=== PATIENT | male | born 1975 | race African-American/Black ===

== ENCOUNTER 2017-05-27 12:20 | Observation (INO) | payer SELFPAY ==
--- NOTE | 2017-05-27 12:58 | DR.GENAD ---
HPI - PCP Primary Care Physician: ROSALIE - HPI Comment HPI Comment: HISTORY BELOW. - Complaint/Symptoms Chief Complaint Doctors Comments: SWELLING LOWER EXTREMITIES TIMES 3 DAYS. TODAY , PATIENT IN ATAXIC, HAVING DYSARTHRIA AND NOT ACTING RIGHT PER HIS RELATIVES. HE IS COMPLAINING OF HEADACHE AND NAUSEA. NO FEVER. Chief Complaint:: PT C/O SWELLING TO LOWER EXT AND HEADACHE. PT'S FAMILY STATES SOMETHING IS WRONG WITH HIM HIS SPEACH IS SLOW SLURRING AND MUMBLING AND THIS IS NOT LIKE HIM. PT IS VERY UNSTEADY ON HIS FEET. - Nurses notes reviewed Nurses Notes Review: Yes - Source History Provided: Patient - Mode of Arrival Mode of Arrival: Ambulatory - Timing Onset of Chief Complaint: 05/24/17 Came on: Suddenly - Duration Duration: Constant Duration: Hours - Severity Severity: Moderate PMH - PMH Past Medical History: Yes Past Medical History: Migraines, Hypertension Past Surgical History: No Surgical History: No History - Family History History of Family Medical Conditions: Yes Family Medical History: Hypertension - Social History Does patient currently use any type of tobacco product: Yes Have you used tobacco products in the last 12 months: Yes Type of Tobacco Use: Cigarettes Does any household member use tobacco: Yes Alcohol Use: None Do you use any recreational Drugs:: No Lives With: Family Lives Where: Home - infectious screening In the last 2 months have you had wt loss of >10#?: NO Have you had fever, night sweats or hemotysis?: No Have you traveled outside the country in the last 6 months?: No Isolation: Standard ROS - Review of Systems Constitutional: No Symptoms Reported. negative: Chills, Fever Eyes: No Symptoms Reported. negative: Eye Pain, Discharge ENTM: No Symptoms Reported, Nose Pain. negative: Ear Pain, Nose Discharge, Nose Congestion, Throat Pain Respiratoy: No Symptoms Reported. negative: Productive Cough, Non-Productive Cough, Short of Breath, Wheezing, Hemoptysis Cardiovascular: Edema. negative: Chest Pain Gastrointestinal/Abdominal: Nausea. negative: Abdominal Pain, Diarrhea, Vomiting Genitourinary: No Symptoms Reported. negative: Dysuria, Frequency, Hematuria Neurological: Dizziness, Other (ATAXIA) Musculoskeletal: Leg (LOWER EXTREMITY EDEMA, RT ANKLE WORSE.) Integumentary: No Symptoms Reported Hematologic/Lymphatic: No Symptoms Reported Endocrine: No Symptoms Reported All Other Systems: Reviewed and Negative PE - Vital Signs Vitals: Temperature 98.4 F Pulse Rate [Left Radial] 74 Pulse Rate 91 Respiratory Rate 16 Blood Pressure [Right Arm] 114/73 Blood Pressure 107/81 O2 Sat by Pulse Oximetry 100 - General Limitations: Altered Mental Status General Appearance: Alert - Head Head Exam: Normal Inspection - Eyes Eye exam: PERRL, EOMI. negative: Scleral Icterus, Conjunctival Injection - ENT ENT Exam: Normal External Ear Exam External Ear Exam: Normal External Inspection TM/Canal Exam: Bilateral Normal Nose Exam: Normal Nose Exam Mouth Exam: Normal Inspection Throat Exam: Normal Inspection - Neck Neck Exam: Trachea Midline - Chest Chest Inspection: Symmetric Chest Wall Rise - Respiratory Respiratory Exam: Normal Lung Sounds Bilat Respiratory Exam: Bilateral Clear to Auscultation - Cardiovascular Cardiovascular Exam: Regular Rate, Normal Rhythm, Normal Heart Sounds - Abdominal Exam Abdominal Exam: Normal Bowel Sounds, Soft. negative: Tenderness - Extremities Extremities Exam: Normal Inspection - Back Back Exam: Normal Inspection - Neurologic Neurological Exam: Alert, Reflexes Normal, Other (ORIENTED TO PERSON AND PLACE.) . negative: CN II-XII Intact (DYSARTHRIA), Normal Gait (ATAXIA), Motor Sensory Deficit - Psychiatric Psychiatric Exam: Flat Affect - Skin Skin Exam: Normal Color MDM - Additional Information Additional Information Obtained From: Family - Differential Diagnosis Differential Diagnosis: AMS, ATAXIA, HAEDACHE, CVA, VERTIGO Course - Treatment Treatment: SEE ORDERS. - Consultation Consultation Comments: DISCUSS CASE WITH DR. POWER. HE WILL ADMIT PATIENT. - Education/Counseling Education/Counseling: Patient, Family, Education Educated On: Treatment, Diagnosis ROR - Labs Reviewed Laboratory Results Reviewed?: Yes Result Diagrams: 05/29/17 07:23 05/29/17 07:23 Laboratory: WBC 8.2 X10^3/uL (3.6-10.0) 05/29/17 07:23 RBC 4.26 X10^6/uL (4.7-6.0) L 05/29/17 07:23 Hgb 14.2 g/dL (13.5-18.0) 05/29/17 07:23 Hct 40.3 % (42.0-54.0) L 05/29/17 07:23 MCV 94.7 fL (80.0-100.0) 05/29/17 07:23 MCH 33.3 pg (27.0-34.0) 05/29/17 07:23 MCHC 35.2 g/dL (33.0-35.0) H 05/29/17 07:23 RDW 12.7 % (11.6-16.5) 05/29/17 07:23 Plt Count 204 X10^3/uL (150.0-450.0) 05/29/17 07:23 MPV 8.4 fL (7.4-11.0) 05/29/17 07: Neut % 66.8 % (42.0-75.0) 05/29/17 07: Lymph % 23.8 % (21.0-51.0) 05/29/17 07: [place] % 6.8 % (0.0-13.0) 05/29/17 07: Eos % 1.7 % (0.9-2.9) 05/29/17 07: Baso % 0.9 % (0.2-1.0) 05/29/17 07:23 Neut # 5.5 x10^3/uL (2.2-4.8) H 05/29/17 07:23 Lymph # 2.0 X10^3/uL (1.3-2.9) 05/29/17 07:23 [place] # 0.6 x10^3/uL (0.3-0.8) 05/29/17 07:23 Eos # 0.1 x10^3/uL (0.0-0.2) 05/29/17 07:23 Baso # 0.1 X10^3/uL (0.0-0.1) 05/29/17 07:23 Absolute Nucleated RBC 0.1 /100WBC 05/29/17 07:23 Sodium 140 mmol/L (136-145) 05/29/17 07:23 Corrected Sodium TNP 05/29/17 07:23 Potassium 3.7 mmol/L (3.5-5.1) 05/29/17 07:23 Chloride 105 mmol/L (98-107) 05/29/17 07:23 Carbon Dioxide 28.6 mmol/L (21-32) 05/29/17 07:23 BUN 5 mg/dL (7-18) L 05/29/17 07:23 Creatinine 0.82 mg/dL (0.70-1.30) 05/29/17 07:23 Est GFR (MDRD) Af Amer > 60 (>60) 05/29/17 07:23 Est GFR (MDRD) Non-Af > 60 (>60) 05/29/17 07:23 Glucose 110 mg/dL (65-99) H 05/29/17 07:23 Calcium 8.2 mg/dL (8.5-10.1) L 05/29/17 07:23 Corrected Calcium 8.8 mg/dL (8.5-10.1) 05/29/17 07:23 Magnesium 2.1 mg/dL (1.7-2.9) 05/28/17 05:29 Total Bilirubin 0.20 mg/dL (0.2-1.0) 05/29/17 07:23 AST 21 Units/L (15-37) 05/29/17 07:23 ALT 43 Units/L (12-78) 05/29/17 07:23 Alkaline Phosphatase 60 Units/L (46-116) 05/29/17 07:23 Creatine Kinase 107 Units/L (39-308) 05/28/17 01:19 CK-MB (CK-2) < 1.0 ng/mL (0-4.0) 05/28/17 01:19 CK/CKMB % Calc 0.9 % (<4) 05/28/17 01:19 Troponin I < 0.02 ng/mL (0-1.5) 05/28/17 01:19 Total Protein 7.2 g/dL (6.4-8.2) 05/29/17 07:23 Albumin 3.3 g/dL (3.4-5.0) L 05/29/17 07:23 Globulin 3.9 g/dL (2.5-4.5) 05/29/17 07:23 Albumin/Globulin Ratio 0.8 Ratio (1.1-2.1) L 05/29/17 07:23 Triglycerides 178 mg/dL (0-150) H 05/28/17 05:29 Cholesterol 206 mg/dL (0-200) H 05/28/17 05:29 LDL Cholesterol, Calc 143 mg/dL (0-100) H 05/28/17 05:29 HDL Cholesterol 27 mg/dL (40-60) L 05/28/17 05:29 Cholesterol/HDL Ratio 7.6 (0.0-5.0) H 05/28/17 05:29 Specimen Type Clean catch urine 05/27/17 14:25 Urine Color Yellow (YELLOW) 05/27/17 14:25 Urine Appearance Clear (CLEAR) 05/27/17 14:25 Urine pH 8.0 (5.0 - 8.0) 05/27/17 14:25 Ur Specific [place] 1.010 (1.000-1.030) 05/27/17 14:25 Urine Protein Negative (NEGATIVE) 05/27/17 14:25 Urine Glucose (UA) Negative (NEGATIVE) 05/27/17 14:25 Urine Ketones Negative (NEGATIVE) 05/27/17 14:25 Urine Occult Blood 1+ (NEGATIVE) 05/27/17 14:25 Urine Nitrite Negative (NEGATIVE) 05/27/17 14:25 Urine Bilirubin Negative (NEGATIVE) 05/27/17 14:25 Urine Urobilinogen Normal (NORMAL) 05/27/17 14:25 Ur Leukocyte Esterase Negative (NEGATIVE) 05/27/17 14:25 Urine RBC 0-2 /HPF (NEGATIVE) 05/27/17 14:25 Urine WBC 0-2 /HPF (NEGATIVE) 05/27/17 14:25 Ur Squamous Epith Cells Negative /HPF (NEGATIVE) 05/27/17 14:25 Urine Bacteria Negative /HPF (NEGATIVE) 05/27/17 14:25 Ur Culture Indicated? No/not indicated 05/27/17 14:25 Urine Opiates Screen Negative (NEG=<300) 05/27/17 14:25 Urine Methadone Screen Negative (NEG=<300) 05/27/17 14:25 Ur Barbiturates Screen Negative (NEG=<200) 05/27/17 14:25 Ur Phencyclidine Scrn Negative (NEG=<25) 05/27/17 14:25 Ur Amphetamines Screen Negative (NEG=<1000) 05/27/17 14:25 U Benzodiazepines Scrn Positive (NEG=<200) 05/27/17 14:25 Urine Cocaine Screen Positive (NEG=<300) 05/27/17 14:25 U Marijuana (THC) Screen Negative (NEG=<50) 05/27/17 14:25 - XRAY XRAY Interpreted by: Radiologist XRAY Findings: REPORT DISCUSS WITH PATIENT AND HIS FAMILY. - EKG Rhythm: NSR (EKG NOTED) - Diagnosis Discharge Problem: Ataxia, Dysarthria, Substance use disorder Mental status alteration Qualifiers: Altered mental status type: disorientation Qualified Code(s): R41.0 - Disorientation, unspecified Hypertension Qualifiers: Hypertension type: essential hypertension Qualified Code(s): I10 - Essential ( primary) hypertension - Discharge Plan Disposition: ADMITTED INPATIENT Condition: Stable - Follow ups/Referrals - Instructions
[2017-05-27] MEDS: NS 1000 ML 1,000 ML IV SCH (13:13)
[2017-05-27 13:16] LABS: BASOPHILS # (AUTO) 0.1 X10^3/uL (0.0-0.1); BASOPHILS % (AUTO) 0.8 % (0.2-1.0); EOSINOPHILS # (AUTO) 0.2 x10^3/uL (0.0-0.2); EOSINOPHILS % (AUTO) 2.4 % (0.9-2.9); HEMATOCRIT 36.5 % (42.0-54.0); HEMOGLOBIN 12.8 g/dL (13.5-18.0); LYMPHOCYTES # (AUTO) 2.2 X10^3/uL (1.3-2.9); LYMPHOCYTES % (AUTO) 28.7 % (21.0-51.0); MEAN CORPUSCULAR HEMOGLOBIN 33.6 pg (27.0-34.0); MEAN CORPUSCULAR HGB CONC 35.1 g/dL (33.0-35.0); MEAN CORPUSCULAR VOLUME 95.8 fL (80.0-100.0); MEAN PLATELET VOLUME 8.2 fL (7.4-11.0); MONOCYTES # (AUTO) 0.7 x10^3/uL (0.3-0.8); MONOCYTES % (AUTO) 8.8 % (0.0-13.0); NEUTROPHILS # (AUTO) 4.6 x10^3/uL (2.2-4.8); NEUTROPHILS % (AUTO) 59.3 % (42.0-75.0); PLATELET COUNT 200 X10^3/uL (150.0-450.0); RED BLOOD COUNT 3.81 X10^6/uL (4.7-6.0); RED CELL DISTRIBUTION WIDTH 13.4 % (11.6-16.5); WHITE BLOOD COUNT 7.8 X10^3/uL (3.6-10.0)
[2017-05-27 13:38] LABS: BLOOD UREA NITROGEN 9 mg/dL (7-18); CALCIUM 8.7 mg/dL (8.5-10.1); CARBON DIOXIDE 30.2 mmol/L (21-32); CHLORIDE 104 mmol/L (98-107); COR NA(FOR HYPERGLY) 141 mmol/L (136-145); CREATININE 0.97 mg/dL (0.70-1.30); GLUCOSE 114 mg/dL (65-99); SODIUM 141 mmol/L (136-145); TROPONIN I < 0.02 ng/mL (0-1.5); eGFR BLACK RACES > 60 (>60); eGFR NON BLACK RACES > 60 (>60)
[2017-05-27 13:43] LABS: ALANINE AMINOTRANSFERASE 59 Units/L (12-78); ALBUMIN 3.4 g/dL (3.4-5.0); ALKALINE PHOSPHATASE 49 Units/L (46-116); ASPARTATE AMINO TRANSFERASE 33 Units/L (15-37); CKMB % 0.7 % (<4); CREATINE KINASE 149 Units/L (39-308); CREATINE KINASE MB < 1.0 ng/mL (0-4.0)
--- NOTE | 2017-05-27 13:44 | CT ---
HISTORY: Headache Study: CT brain without contrast Comparison: April 17, 2013 Technique: Multiple axial images of the brain were obtained from the skull base to the vertex without administr ation of IV contrast. Coronal and sagittal reformats were performed. Dose reduction procedures were use with MA/kv adjusted for body size. Findings: No acute intraparenchymal hemorrhage or mass can be identified. No extra-axial fluid collections ar e seen. No alteration in the attenuation of the brain parenchyma can be identified to suggest acute or subacute ischemic change. The ventricular system is symmetric and nondilated. The extracranial structures are grossly unremarkable. IMPRESSION: No significant intracranial abnormality identified Reported By:
--- NOTE | 2017-05-27 13:46 | RAD ---
HISTORY: Chest pain Study: Chest one view Comparison: None Findings: The trachea is midline. The cardiac silhouette is enlarged. No congestive heart failure is noted.. The lungs are clear without focal infiltrate or effusion. The bony thorax is unremarkable. IMPRESSION: 1. Cardiomegaly without congestive heart failure 2. Lungs clear Reported By:
[2017-05-27 14:52] LABS: BILIRUBIN,URINE NEGATIVE (NEGATIVE); BLOOD/HEMOGLOBIN,URINE 1+ (NEGATIVE); GLUCOSE, URINE NEGATIVE (NEGATIVE); KETONES,URINE NEGATIVE (NEGATIVE); LEUKOCYTE ESTERASE ,URINE NEGATIVE (NEGATIVE); NITRITES,URINE NEGATIVE (NEGATIVE); PROTEIN,URINE NEGATIVE (NEGATIVE); UROBILINOGEN,URINE NORMAL (NORMAL)
[2017-05-27 15:00] LABS: APPEARANCE,URINE CLEAR (CLEAR); BACTERIA,URINE NEGATIVE /HPF (NEGATIVE); COLOR,URINE YELLOW (YELLOW); RBC,URINE 0-2 /HPF (NEGATIVE); SQUAMOUS EPITHELIAL CELL,UR NEGATIVE /HPF (NEGATIVE)
[2017-05-27 20:00] LABS: CKMB % 0.8 % (<4); CREATINE KINASE 122 Units/L (39-308); CREATINE KINASE MB < 1.0 ng/mL (0-4.0); TROPONIN I < 0.02 ng/mL (0-1.5)
[2017-05-28 02:03] LABS: CKMB % 0.9 % (<4); CREATINE KINASE 107 Units/L (39-308); CREATINE KINASE MB < 1.0 ng/mL (0-4.0); TROPONIN I < 0.02 ng/mL (0-1.5)
[2017-05-28 06:20] LABS: BASOPHILS % (AUTO) 0.5 % (0.2-1.0); EOSINOPHILS # (AUTO) 0.2 x10^3/uL (0.0-0.2); EOSINOPHILS % (AUTO) 2.1 % (0.9-2.9); HEMATOCRIT 36.8 % (42.0-54.0); HEMOGLOBIN 12.7 g/dL (13.5-18.0); LYMPHOCYTES # (AUTO) 2.3 X10^3/uL (1.3-2.9); LYMPHOCYTES % (AUTO) 28.8 % (21.0-51.0); MEAN CORPUSCULAR HEMOGLOBIN 33.2 pg (27.0-34.0); MEAN CORPUSCULAR HGB CONC 34.6 g/dL (33.0-35.0); MEAN CORPUSCULAR VOLUME 95.9 fL (80.0-100.0); MEAN PLATELET VOLUME 8.6 fL (7.4-11.0); MONOCYTES # (AUTO) 0.6 x10^3/uL (0.3-0.8); MONOCYTES % (AUTO) 7.5 % (0.0-13.0); NEUTROPHILS # (AUTO) 4.8 x10^3/uL (2.2-4.8); NEUTROPHILS % (AUTO) 61.1 % (42.0-75.0); PLATELET COUNT 192 X10^3/uL (150.0-450.0); RED BLOOD COUNT 3.84 X10^6/uL (4.7-6.0); WHITE BLOOD COUNT 7.9 X10^3/uL (3.6-10.0)
[2017-05-28 06:24] LABS: ALANINE AMINOTRANSFERASE 46 Units/L (12-78); ALKALINE PHOSPHATASE 51 Units/L (46-116); ASPARTATE AMINO TRANSFERASE 20 Units/L (15-37); BLOOD UREA NITROGEN 8 mg/dL (7-18); CARBON DIOXIDE 27.5 mmol/L (21-32); CHLORIDE 109 mmol/L (98-107); CHOL/HDL RATIO 7.6 (0.0-5.0); CHOLESTEROL 206 mg/dL (0-200); COR CA(FOR HYPOALB) 8.8 mg/dL (8.5-10.1); GLUCOSE 106 mg/dL (65-99); HDL CHOLESTEROL 27 mg/dL (40-60); MAGNESIUM 2.1 mg/dL (1.7-2.9); SODIUM 143 mmol/L (136-145); TOTAL PROTEIN 6.4 g/dL (6.4-8.2); TRIGLYCERIDES 178 mg/dL (0-150); eGFR BLACK RACES > 60 (>60); eGFR NON BLACK RACES > 60 (>60)
[2017-05-28 10:28] VITALS: BMI 31.5
[2017-05-28] MEDS: ECOTRIN TAB 325 MG PO SCH (10:51)
[2017-05-28] MEDS: NORVASC TAB 5 MG PO SCH (10:51)
--- NOTE | 2017-05-28 11:29 | DR.H&P ---
H&P - History & Physical for Day of: H&P Date: 05/27/17 - Chief Complaint Chief Complaint: LOWER EXTREMITY SWELLING, HEADACHE, SLURRED SPEECH - Allergies Allergies/Adverse Reactions: Allergies Allergy/AdvReac Type Severity Reaction Status Date / Time ibuprofen Allergy Verified 05/27/17 13:12 - History of Present Illness History of Present Illness: IS A 41 YEAR OLD BLACK MALE WHO REPORTED TO THE EMERGENCY ROOM WITH COMPLAINTS OF HEADACHE, SLURRED SPEECH, AND SWELLING TO BILATERAL FEET. FAMILY ALSO REPORTED THAT PATIENT HAD BEEN STAGGERING AND UNSTEADY ON HIS FEET. FAMILY REPORTED THAT SYMPTOMS STARTED ON . PATIENT REPORTED A HISTORY OF MIGRAINES AND HYPERTENSION, BUT IS NOT COMPLIANT WITH MEDICATION. PATIENT DENIED SHORTNESS OF BREATH, CHEST PAIN, OR NUMBNESS. ON ARRIVAL TO ER, VITALS WERE 98.4-91-16-100%-107/81. CBC WNL EXCEPT RBC 3.81, HGB 12.8, HCT 36.5. CMP WNL EXCEPT GLUCOSE 114. CARDIAC ENZYMES WNL, EKG REPORTS SINUS RHYTHM. BRAIN CT NEGATIVE AND CHEST XRAY CLEAR. TOXICOLOGY WAS POSITIVE FOR BENZODIAZEPINES AND COCAINE. WE ADMITTED PATIENT FOR FURTHER TREATMENT AND EVALUATION. WE STARTED HIM ON NS@125ML/HR. WE PLANNED TO RECHECK LABS AND FOLLOW UP WITH PATIENT IN AM. - Past Medical History Past Medical History: Migraines, Hypertension - Past Surgical History Surgical History: No History - Family History Family Medical History: Hypertension - Social History Does patient currently use any type of tobacco product: Yes Have you used tobacco products in the last 12 months: Yes Type of Tobacco Use: Cigarettes How many years tobacco product used: 7 Does any household member use tobacco: Yes Alcohol Use: None - Medications Home Medications: No Known Home Medications 05/27/17 [History] - Review of Systems Constitutional: See HPI, Weakness. denies: No Symptoms Reported, Fever, Chills , Sweats, Malaise, Other Eyes: No Symptoms Reported. denies: See HPI, Pain, Vision Change, Conjunctivae Inflammation, Eyelid Inflammation, Redness, Other ENT: No Symptoms Reported. denies: See HPI, Ear Pain, Ear Discharge, Nose Pain , Nose Discharge, Nose Congestion, Mouth Pain, Mouth Swelling, Throat Pain, Throat Swelling, Other Respiratory: No Symptoms Reported. denies: See HPI, Cough, Dry, Shortness of Breath, Hemoptysis, SOB with Excertion, Pleuritic Pain, Sputum, Wheezing, Other Cardiovascular: Edema. denies: No Symptoms Reported, Chest Pain, See HPI, Palpitations, Orthopnea, Paroxysmal Noc. Dyspnea, Light Headedness, Other Gastrointestinal: No Symptoms Reported. denies: See HPI, Nausea, Vomiting, Abdominal Pain, Diarrhea, Constipation, Melena, Hematochezia, Other Genitourinary: No Symptoms Reported. denies: See HPI, Dysuria, Frequency, Incontinence, Hematuria, Retention, Other Musculoskeletal: No Symptoms Reported. denies: See HPI, Shoulder Pain, Arm Pain , Back Pain, Hand Pain, Leg Pain, Foot Pain, Neck Pain, Other Skin: No Symptoms Reported Neurological: Weakness, Incoordination, Change in Speech. denies: No Symptoms Reported, See HPI, Numbness, Confusion, Seizures, Other - Physical Exam Vital Signs: Temperature 98 F Pulse Rate [Left Radial] 78 Respiratory Rate 15 Blood Pressure [Right Arm] 127/90 O2 Sat by Pulse Oximetry 95 Oriented: Normal. negative: Time, Person, Place, Not Oriented, Unable to test, Other Eyes: Normal. negative: Blurred Vision, Diplopia, Discharge, Pain, Redness, Photophobia, Other Ear: Normal. negative: Right, Left, Swelling, Ecchymosis, Hemotypanum, Abrasion , Laceration Nose: Normal. negative: Injected, Discharge, Blood, Other Throat: Normal. negative: Tonsillar Hypertrophy, Red, Exudate, Dry, Other Respiratory: Clear Throughout. negative: Diminished Throughout, Rhonchi Throughout, Rales Throughout, Wheezes Throughout, RUL Clear, RML Clear, RLL Clear, PRETTY Clear, LML Clear, LLL Clear, RUL Diminished, RML Diminished, RLL Diminished, PRETTY Diminished, LML Diminished, LLL Diminished, RUL Absent, RML Absent, RLL Absent, PRETTY Absent, LML Absent, LLL Absent, RUL Rhonchi, RML Rhonchi , RLL Rhonchi, PRETTY Rhonchi, LML Rhonchi, LLL Rhonchi, RUL Insp. Wheeze, RML Insp. Wheeze, RLL Insp. Wheeze, PRETTY Insp.Wheeze, LML Insp.Wheeze, LLL Insp.Wheeze, RUL Exp. Wheeze, RML Exp. Wheeze, RLL Exp. Wheeze, PRETTY Exp. Wheeze , LML Exp. Wheeze, LLL Exp. Wheeze, RUL Rales, RML Rales, RLL Rales, PRETTY Rales, LML Rales, LLL Rales, RUL Rub, RML Rub, RLL Rub, PRETTY Rub, LML Rub, LLL Rub, RUL Squeak, RML Squeak, RLL Squeak, PRETTY Squeak, LML Squeak, LLL Squeak Cardiovascular: Normal. negative: Tachycardia, Bradycardia, Irregular, S3, S4, Systolic, Diastolic, Murmur, Edema, Other : Normal. negative: Dysuria, Hematuria, Frequency, Discharge, Testicular Pain , Bleeding, , Other Auscultation: Bowel Sounds: Normal. negative: Bruit, Absent, Increased, Decreased, High Pitched, Other Palpation: Normal. negative: Spleen Enlarged, Liver Enlarged, Mass Pulsatile, Other Tenderness: Normal. negative: Diffuse, RUQ, RLQ, LUQ, LLQ, Epigastric, Periumbilical, Suprapubic, Mild, Moderate, Severe, Rebound, Guarding, Rigidity, Other Skin: Normal. negative: Decreased Turgur, Rash, Papular, Macular, Maculopapular , Vesicular, Pustular, Petechial, Red, Tender, Hot, Diaphoresis, Wound, Bruising , Ecchymosis, Other Musculoskeletal: Normal. negative: Right, Left, Shoulder, Clavicle, Arm, Elbow , Forearm, Wrist, Hand, Hip, Thigh, Knee, Leg, Ankle, Foot, Back:Thoracic, Back: Lumbar, Back:Midline, Back:Paraspinous, Pelvis, Swelling, Tender, Deformity, Pulse Deficit, Motor Deficit, Sensory Deficit, Instability, Crepitance Psychiatric: Normal. negative: Anxiety, Depression, Agitation, Other Mood Description: Calm. negative: Angry, Apathetic, Depressed, Fearful, Flat, Happy, Hostile, Sad, Suspicious, Withdrawn, Anxious, Appropriate, Labile Affect: Normal. negative: Angry, Anxious, Depressed, Flat, Hysterical, Quiet, Violent Speech Pattern: Unclear, Slurred. negative: Clear, Appropriate, Inappropriate, Delayed, Excessive, Aphasic, Artificially Ventilated - Assessment/Plan (1) Altered mental status Qualifiers: Altered mental status type: disorientation Coma depth: C Coma timing: C Qualified Code(s): R41.0 - Disorientation, unspecified Status: Acute Plan: CONTINUE TO MONITOR (2) Ataxia Status: Acute Plan: CONTINUE TO MONITOR (3) Headache Qualifiers: Headache type: unspecified Headache chronicity pattern: acute headache Intractability: not intractable Qualified Code(s): R51 - Headache Status: Acute Plan: CONTINUE TO MONITOR
--- NOTE | 2017-05-28 11:46 | PCM.PROG ---
Progress Note - Progress Note for Day of Date: 05/28/17 - Subjective Subjective: IS ALERT AND ORIENTED IN BED ON MORNING ROUNDS. HE IS NOTED WITH COMPLAINTS OF WEAKNESS, BUT DENIES HEADACHE OR DIZZINESS AT THIS TIME. SPEECH IS CLEAR AND APPROPRIATE. HAND ENTRY MANAGER ARE EQUAL AND STRONG. PUPILS PERRLA. LUNGS CLEAR TO AUSCULTATION. VITALS THIS AM ARE 97.6-64-18-99%-130/88. CBC WNL EXCEPT RBC 3.84, HGB 12.7, HCT 36.8. CMP WNL EXCEPT CHLORIDE 109, GLUCOSE 106, CALCIUM 8.0, ALBUMIN 3.0. TRIGLYCERIDES 178, CHOLESTEROL 206, HCL 27, LDL 143. WE WILL START SIMVASTATIN 40MG HS, ECOTRIN 325MG DAILY, AND AMLODIPINE 5MG DAILY. WE PLAN TO RECHECK LABS AND FOLLOW UP WITH PATIENT IN AM. - Past Medical Family Social History Past Med/Fam/Surg Hx: No changes since H&P Allergies: Allergies ibuprofen Allergy (Verified 05/27/17 13:12) - Review of Systems ROS: No change since H&P - Vital Signs and I&O's Vital Signs: Temperature 98 F Pulse Rate [Left Radial] 78 Respiratory Rate 15 Blood Pressure [Right Arm] 127/90 O2 Sat by Pulse Oximetry 95 Intake and Output: Intake & Output 05/25/17 05/26/17 05/27/17 05/28/17 11:59 11:59 11:59 11:59 Intake Total 227 Output Total 1800 Balance -1573 - Physical Exam Oriented: Normal. negative: Time, Person, Place, Not Oriented, Unable to test, Other Eyes: Normal. negative: Blurred Vision, Diplopia, Discharge, Pain, Redness, Photophobia, Other Ear: Normal. negative: Right, Left, Swelling, Ecchymosis, Hemotypanum, Abrasion , Laceration Nose: Normal. negative: Injected, Discharge, Blood, Other Throat: Normal. negative: Tonsillar Hypertrophy, Red, Exudate, Dry, Other Respiratory: Normal Cardiovascular: Normal. negative: Tachycardia, Bradycardia, Irregular, S3, S4, Systolic, Diastolic, Murmur, Edema, Other : Normal. negative: Dysuria, Hematuria, Frequency, Discharge, Testicular Pain , Bleeding, , Other Auscultation: Bowel Sounds: Normal. negative: Bruit, Absent, Increased, Decreased, High Pitched, Other Palpation: Normal Tenderness: Normal. negative: Diffuse, RUQ, RLQ, LUQ, LLQ, Epigastric, Periumbilical, Suprapubic, Mild, Moderate, Severe, Rebound, Guarding, Rigidity, Other Skin: Normal. negative: Decreased Turgur, Rash, Papular, Macular, Maculopapular , Vesicular, Pustular, Petechial, Red, Tender, Hot, Diaphoresis, Wound, Bruising , Ecchymosis, Other Musculoskeletal: Normal. negative: Right, Left, Shoulder, Clavicle, Arm, Elbow , Forearm, Wrist, Hand, Hip, Thigh, Knee, Leg, Ankle, Foot, Back:Thoracic, Back: Lumbar, Back:Midline, Back:Paraspinous, Pelvis, Swelling, Tender, Deformity, Pulse Deficit, Motor Deficit, Sensory Deficit, Instability, Crepitance Psychiatric: Normal. negative: Anxiety, Depression, Agitation, Other Mood Description: Calm. negative: Angry, Apathetic, Depressed, Fearful, Flat, Happy, Hostile, Sad, Suspicious, Withdrawn, Anxious, Appropriate, Labile Affect: Normal. negative: Angry, Anxious, Depressed, Flat, Hysterical, Quiet, Violent Speech Pattern: Unclear, Slurred. negative: Clear, Appropriate, Inappropriate, Delayed, Excessive, Aphasic, Artificially Ventilated - Laboratory and Diagnostics Result Diagrams: 05/28/17 05:29 05/28/17 05:29 Labs: Laboratory WBC 7.9 X10^3/uL (3.6-10.0) 05/28/17 05: RBC 3.84 X10^6/uL (4.7-6.0) L 05/28/17 05:29 Hgb 12.7 g/dL (13.5-18.0) L 05/28/17 05:29 Hct 36.8 % (42.0-54.0) L 05/28/17 05: MCV 95.9 fL (80.0-100.0) 05/28/17 05:29 MCH 33.2 pg (27.0-34.0) 05/28/17 05: MCHC 34.6 g/dL (33.0-35.0) 05/28/17 05:29 RDW 13.0 % (11.6-16.5) 05/28/17 05:29 Plt Count 192 X10^3/uL (150.0-450.0) 05/28/17 05:29 MPV 8.6 fL (7.4-11.0) 05/28/17 05:29 Neut % 61.1 % (42.0-75.0) 05/28/17 05:29 Lymph % 28.8 % (21.0-51.0) 05/28/17 05:29 [place] % 7.5 % (0.0-13.0) 05/28/17 05:29 Eos % 2.1 % (0.9-2.9) 05/28/17 05:29 Baso % 0.5 % (0.2-1.0) 05/28/17 05:29 Neut # 4.8 x10^3/uL (2.2-4.8) 05/28/17 05:29 Lymph # 2.3 X10^3/uL (1.3-2.9) 05/28/17 05:29 [place] # 0.6 x10^3/uL (0.3-0.8) 05/28/17 05:29 Eos # 0.2 x10^3/uL (0.0-0.2) 05/28/17 05:29 Baso # 0.0 X10^3/uL (0.0-0.1) 05/28/17 05:29 Absolute Nucleated RBC 0.1 /100WBC 05/28/17 05:29 Sodium 143 mmol/L (136-145) 05/28/17 05:29 Corrected Sodium TNP 05/28/17 05:29 Potassium 3.9 mmol/L (3.5-5.1) 05/28/17 05:29 Chloride 109 mmol/L (98-107) H 05/28/17 05:29 Carbon Dioxide 27.5 mmol/L (21-32) 05/28/17 05:29 BUN 8 mg/dL (7-18) 05/28/17 05:29 Creatinine 0.90 mg/dL (0.70-1.30) 05/28/17 05:29 Est GFR (MDRD) Af Amer > 60 (>60) 05/28/17 05:29 Est GFR (MDRD) Non-Af > 60 (>60) 05/28/17 05:29 Glucose 106 mg/dL (65-99) H 05/28/17 05:29 Calcium 8.0 mg/dL (8.5-10.1) L 05/28/17 05:29 Corrected Calcium 8.8 mg/dL (8.5-10.1) 05/28/17 05:29 Magnesium 2.1 mg/dL (1.7-2.9) 05/28/17 05:29 Total Bilirubin 0.20 mg/dL (0.2-1.0) 05/28/17 05:29 AST 20 Units/L (15-37) 05/28/17 05:29 ALT 46 Units/L (12-78) 05/28/17 05:29 Alkaline Phosphatase 51 Units/L (46-116) 05/28/17 05:29 Creatine Kinase 107 Units/L (39-308) 05/28/17 01:19 CK-MB (CK-2) < 1.0 ng/mL (0-4.0) 05/28/17 01:19 CK/CKMB % Calc 0.9 % (<4) 05/28/17 01:19 Troponin I < 0.02 ng/mL (0-1.5) 05/28/17 01:19 Total Protein 6.4 g/dL (6.4-8.2) 05/28/17 05:29 Albumin 3.0 g/dL (3.4-5.0) L 05/28/17 05:29 Globulin 3.4 g/dL (2.5-4.5) 05/28/17 05:29 Albumin/Globulin Ratio 0.9 Ratio (1.1-2.1) L 05/28/17 05:29 Triglycerides 178 mg/dL (0-150) H 05/28/17 05:29 Cholesterol 206 mg/dL (0-200) H 05/28/17 05:29 LDL Cholesterol, Calc 143 mg/dL (0-100) H 05/28/17 05:29 HDL Cholesterol 27 mg/dL (40-60) L 05/28/17 05:29 Cholesterol/HDL Ratio 7.6 (0.0-5.0) H 05/28/17 05:29 Specimen Type Clean catch urine 05/27/17 14:25 Urine Color Yellow (YELLOW) 05/27/17 14:25 Urine Appearance Clear (CLEAR) 05/27/17 14:25 Urine pH 8.0 (5.0 - 8.0) 05/27/17 14:25 Ur Specific [place] 1.010 (1.000-1.030) 05/27/17 14:25 Urine Protein Negative (NEGATIVE) 05/27/17 14:25 Urine Glucose (UA) Negative (NEGATIVE) 05/27/17 14:25 Urine Ketones Negative (NEGATIVE) 05/27/17 14:25 Urine Occult Blood 1+ (NEGATIVE) 05/27/17 14:25 Urine Nitrite Negative (NEGATIVE) 05/27/17 14:25 Urine Bilirubin Negative (NEGATIVE) 05/27/17 14:25 Urine Urobilinogen Normal (NORMAL) 05/27/17 14:25 Ur Leukocyte Esterase Negative (NEGATIVE) 05/27/17 14:25 Urine RBC 0-2 /HPF (NEGATIVE) 05/27/17 14:25 Urine WBC 0-2 /HPF (NEGATIVE) 05/27/17 14:25 Ur Squamous Epith Cells Negative /HPF (NEGATIVE) 05/27/17 14:25 Urine Bacteria Negative /HPF (NEGATIVE) 05/27/17 14:25 Ur Culture Indicated? No/not indicated 05/27/17 14:25 Urine Opiates Screen Negative (NEG=<300) 05/27/17 14:25 Urine Methadone Screen Negative (NEG=<300) 05/27/17 14:25 Ur Barbiturates Screen Negative (NEG=<200) 05/27/17 14:25 Ur Phencyclidine Scrn Negative (NEG=<25) 05/27/17 14:25 Ur Amphetamines Screen Negative (NEG=<1000) 05/27/17 14:25 U Benzodiazepines Scrn Positive (NEG=<200) 05/27/17 14:25 Urine Cocaine Screen Positive (NEG=<300) 05/27/17 14:25 U Marijuana (THC) Screen Negative (NEG=<50) 05/27/17 14:25 - Plan (1) Altered mental status Status: Acute Qualifiers: Altered mental status type: disorientation Coma depth: C Coma timing: C Qualified Code(s): R41.0 - Disorientation, unspecified Plan: CONTINUE TO MONITOR (2) Ataxia Status: Acute Plan: CONTINUE TO MONITOR (3) Headache Status: Acute Qualifiers: Headache type: unspecified Headache chronicity pattern: acute headache Intractability: not intractable Qualified Code(s): R51 - Headache Plan: CONTINUE TO MONITOR (4) Hyperlipidemia Status: Acute Qualifiers: Hyperlipidemia type: mixed hyperlipidemia Qualified Code(s): E78.2 - Mixed hyperlipidemia Plan: START SIMVASTATIN 40MG HS, CONTINUE TO MONITOR (5) Hypertension Status: Acute Qualifiers: Hypertension type: essential hypertension Qualified Code(s): I10 - Essential (primary) hypertension Plan: START AMLODIPINE 5MG DAILY
[2017-05-28] MEDS: NS 1000 ML 1,000 ML IV SCH ×3 (17:12→17:13)
[2017-05-28] MEDS ORDERED: ZOCOR TAB 40 MG PO SCH (21:00)
[2017-05-29] MEDS: NS 1000 ML 1,000 ML IV SCH (06:14)
[2017-05-29 07:42] LABS: BASOPHILS # (AUTO) 0.1 X10^3/uL (0.0-0.1); BASOPHILS % (AUTO) 0.9 % (0.2-1.0); EOSINOPHILS # (AUTO) 0.1 x10^3/uL (0.0-0.2); EOSINOPHILS % (AUTO) 1.7 % (0.9-2.9); HEMATOCRIT 40.3 % (42.0-54.0); HEMOGLOBIN 14.2 g/dL (13.5-18.0); LYMPHOCYTES % (AUTO) 23.8 % (21.0-51.0); MEAN CORPUSCULAR HEMOGLOBIN 33.3 pg (27.0-34.0); MEAN CORPUSCULAR HGB CONC 35.2 g/dL (33.0-35.0); MEAN CORPUSCULAR VOLUME 94.7 fL (80.0-100.0); MEAN PLATELET VOLUME 8.4 fL (7.4-11.0); MONOCYTES # (AUTO) 0.6 x10^3/uL (0.3-0.8); MONOCYTES % (AUTO) 6.8 % (0.0-13.0); NEUTROPHILS # (AUTO) 5.5 x10^3/uL (2.2-4.8); NEUTROPHILS % (AUTO) 66.8 % (42.0-75.0); PLATELET COUNT 204 X10^3/uL (150.0-450.0); RED BLOOD COUNT 4.26 X10^6/uL (4.7-6.0); RED CELL DISTRIBUTION WIDTH 12.7 % (11.6-16.5); WHITE BLOOD COUNT 8.2 X10^3/uL (3.6-10.0)
[2017-05-29 07:50] LABS: ALANINE AMINOTRANSFERASE 43 Units/L (12-78); ALBUMIN 3.3 g/dL (3.4-5.0); ALKALINE PHOSPHATASE 60 Units/L (46-116); ASPARTATE AMINO TRANSFERASE 21 Units/L (15-37); BLOOD UREA NITROGEN 5 mg/dL (7-18); CALCIUM 8.2 mg/dL (8.5-10.1); CARBON DIOXIDE 28.6 mmol/L (21-32); CHLORIDE 105 mmol/L (98-107); COR CA(FOR HYPOALB) 8.8 mg/dL (8.5-10.1); CREATININE 0.82 mg/dL (0.70-1.30); GLUCOSE 110 mg/dL (65-99); SODIUM 140 mmol/L (136-145); TOTAL PROTEIN 7.2 g/dL (6.4-8.2); eGFR BLACK RACES > 60 (>60); eGFR NON BLACK RACES > 60 (>60)
[2017-05-29] MEDS: ECOTRIN TAB 325 MG PO SCH (08:06)
[2017-05-29] MEDS: NORVASC TAB 5 MG PO SCH (08:06)
[2017-05-29 08:21] VITALS: BP 117/81
--- NOTE | 2017-05-31 14:26 | DR.CARTERD ---
- Admission Date Date of Admission: 05/27/17 - Admission Diagnoses Admission Diagnosis: (1) Altered mental status (2) Ataxia (3) Headache - Discharge Date Discharge Date: 05/29/17 - Discharge Diagnoses Discharge Diagnosis: (1) Altered mental status (2) Ataxia (3) Headache (4) Hyperlipidemia (5) Hypertension - Hospital Course Hospital Course: IS A 41 YEAR OLD BLACK MALE WHO REPORTED TO THE EMERGENCY ROOM WITH COMPLAINTS OF HEADACHE, SLURRED SPEECH, AND SWELLING TO BILATERAL FEET. FAMILY ALSO REPORTED THAT PATIENT HAD BEEN STAGGERING AND UNSTEADY ON HIS FEET. FAMILY REPORTED THAT SYMPTOMS STARTED ON 05/24/2017. PATIENT REPORTED A HISTORY OF MIGRAINES AND HYPERTENSION, BUT IS NOT COMPLIANT WITH MEDICATION. PATIENT DENIED SHORTNESS OF BREATH, CHEST PAIN, OR NUMBNESS. ON ARRIVAL TO ER, VITALS WERE 98.4-91-16-100%-107/81. CBC WNL EXCEPT RBC 3.81, HGB 12.8, HCT 36.5. CMP WNL EXCEPT GLUCOSE 114. CARDIAC ENZYMES WNL, EKG REPORTED SINUS RHYTHM. BRAIN CT NEGATIVE AND CHEST XRAY CLEAR. TOXICOLOGY WAS POSITIVE FOR BENZODIAZEPINES AND COCAINE. WE ADMITTED PATIENT FOR FURTHER TREATMENT AND EVALUATION. WE STARTED HIM ON NS@125ML/HR. DAY 2 OF STAY: PATIENT WAS NOTED WITH COMPLAINTS OF WEAKNESS, BUT DENIES HEADACHE OR DIZZINESS. NEURO CHECKS WNL OF PATIENT'S WELL KNOWN BASELINE. CBC WNL EXCEPT RBC 3.84, HGB 12.7, HCT 36.8. CMP WNL EXCEPT CHLORIDE 109, GLUCOSE 106, CALCIUM 8.0, ALBUMIN 3.0. TRIGLYCERIDES 178, CHOLESTEROL 206, HCL 27, LDL 143. WE STARTED SIMVASTATIN 40MG HS, ECOTRIN 325MG DAILY, AND AMLODIPINE 5MG DAILY. ON DAY OF DISCHARGE, PATIENT IS ALERT AND ORIENTED. HE IS SITTING UP IN BED WITH FAMILY AT BEDSIDE. HE IS NOTED WITH NO COMPLAINTS. VITALS THIS AM WERE 98.1 -67-16-100%-117/81. CBC WNL EXCEPT RBC 4.26, HCT 40.3. CMP WNL EXCEPT BUN 5, GLUCOSE 110, CALCIUM 8.2, ALBUMIN 3.3. WE PLANNED FOR DISCHARGE. INSTRUCTIONS FOR MEDICATIONS AND FOLLOW UP WERE DISCUSSED WITH PATIENT AND FAMILY. BOTH VERBALIZED UNDERSTANDING. PATIENT DISCHARGED TO HOME WITH FAMILY IN STABLE CONDITION WITH NEW PRESCRIPTIONS FOR NORVASC 5MG PO DAILY, ECOTRIN 325MG PO DAILY, AND SIMVASTATIN 40MG HS. PATIENT HAS INSTRUCTIONS TO FOLLOW UP WITH HELADIO ARREDONDO AT [facility], [place]. - Discharge Medications Discharge Medications: No Known Home Medications 1 tab PO DAILY 05/27/17 [History] Amlodipine Besylate [NORVASC 5 MG *] 5 mg PO DAILY #30 tab 05/29/17 [Rx] Aspirin EC [ECOTRIN 325 MG *] 325 mg PO DAILY #90 tab 05/29/17 [Rx] Simvastatin [ZOCOR 40 MG *] 40 mg PO HS #30 tab 05/29/17 [Rx]
== END 2017-05-29 11:45 | disposition home or self-care (01) ==
LOC: ER 14:13 → ICU 16:14
PROVIDERS: ADMIT Internal Medicine; ATTEND Internal Medicine
DX: R41.0 Disorientation, unspecified (principal); R27.0 Ataxia, unspecified; R51 Headache; R47.1 Dysarthria and anarthria; R60.0 Localized edema; I51.7 Cardiomegaly; E78.2 Mixed hyperlipidemia; I10 Essential (primary) hypertension; D64.89 Other specified anemias; F14.90 Cocaine use, unspecified, uncomplicated; F19.90 Other psychoactive substance use, unspecified, uncomplicated
CPT/HCPCS: 36415; 51702; 70450; 71010; 80053; 80061; 80307; 81001; 82550; 82553; 83735; 84484; 85025; 93005; 96365; 96367; 96374; 99284; A4222; G0378; G0434